=== PATIENT | female | born 1950 | race Hispanic/Latino ===

== ENCOUNTER 2017-08-10 17:05 | Emergency (ER) | payer MEDICARE ==
[2017-08-10 17:05] VITALS: BMI 26.9
[2017-08-10 17:27] VITALS: RESP 18; TEMP 98
--- NOTE | 2017-08-10 17:56 | ED PDOC ---
Arrival/HPI - General Chief Complaint: Back Pain Time Seen by Provider: 08/10/17 17:30 Historian: Patient - History of Present Illness Narrative History of Present Illness (Text): 08/10/17 17:57 A 67 year old female, with past medical history of hypertension, hyperlipidemia , aortic aneurysm and renal stents, presents to the emergency department complaining of left lower back pain for one week. Patient states her pain worsens with movement. Patient also reports abdominal bloating and left lower abdominal discomfort. Patient denies any injuries, trauma, fever, chills, nausea , vomiting, urinary symptoms, chest pain, shortness of breath, lower extremity numbness, or any other complaints. PMD: Dr. Lange Time/Duration: 1 week Symptom Course: Unchanged Quality: Other Activities at Onset: Rest Context: Home Past Medical History - Provider Review Nursing Documentation Reviewed: Yes - Infectious Disease Hx of Infectious Diseases: None - Tetanus Immunization Tetanus Immunization: Unknown - Reproductive Currently : No - Cardiac Hx Cardiac Disorders: Yes Hx Hypertension: Yes Hx Pacemaker: No - Pulmonary Hx Respiratory Disorders: Yes (SMOKED CIGARETTES H/O QUIT 2013 SMOKED 2 PPD) - Neurological Hx Neurological Disorder: Yes Hx Dizziness: Yes - HEENT Hx HEENT Disorder: No - Renal Hx Renal Disorder: Yes Other/Comment: BILATERAL RENAL ARTERY STENOSIS WITH PLACEMENT OF STENT 01-16-16 - Endocrine/Metabolic Hx Endocrine Disorders: No - Hematological/Oncological Hx Blood Disorders: No - Integumentary Hx Dermatological Disorder: No - Musculoskeletal/Rheumatological Hx Musculoskeletal Disorders: Yes Hx Arthritis: Yes Hx Falls: Yes Other/Comment: TORN MENISCUS LEFT- METATARSAL SX RIGHT FOOT. - Gastrointestinal Hx Gastrointestinal Disorders: No Hx Gastroesophageal Reflux: No Other/Comment: abdominal aortic aneurysm - Genitourinary/Gynecological Hx Genitourinary Disorders: No - Psychiatric Hx Emotional Abuse: No Hx Physical Abuse: No Hx Substance Use: No - Past Surgical History Past Surgical History: No Previous - Surgical History Other/Comment: 01-16-16 BILATERAL RENAL ARTERY STENOSIS WITH STNET PLACEMENT- - Anesthesia Hx Anesthesia Reactions: No Hx Malignant Hyperthermia: No - Suicidal Assessment Feels Threatened In Home Enviroment: No Family/Social History - Physician Review Nursing Documentation Reviewed: Yes Family/Social History: No Known Family HX Smoking Status: Former Smoker Hx Alcohol Use: No Hx Substance Use: No Hx Substance Use Treatment: No Allergies/Home Meds Allergies/Adverse Reactions: Allergies No Known Allergies Allergy (Verified 08/10/17 17:27) Home Medications: Home Meds Medication Instructions Recorded Confirmed Atorvastatin [Lipitor] 40 mg PO QAM 01/14/16 08/10/17 Aspirin [Adult Low Dose Aspirin EC] 81 mg PO DAILY 08/10/17 08/10/17 Valsartan [Diovan] 160 mg PO DAILY 08/10/17 08/10/17 Review of Systems - Physician Review All systems were reviewed & negative as marked: Yes - Review of Systems Constitutional: absent: Fevers, Night Sweats Respiratory: absent: SOB Cardiovascular: absent: Chest Pain Gastrointestinal: Abdominal Pain (left lower). absent: Nausea, Vomiting Genitourinary Female: absent: Dysuria, Frequency, Hematuria Musculoskeletal: Back Pain (left lower) Neurological: absent: Other (LE numbness) Physical Exam Vital Signs Reviewed: Yes Vital Signs Temp Pulse Resp BP Pulse Ox 08/10/17 20:27 83 18 140/80 97 08/10/17 18:07 81 18 158/96 H 95 08/10/17 17:26 98.0 F 88 18 163/103 H 93 L Appearance: Positive for: Well-Appearing, Non-Toxic, Comfortable Pain Distress: None Mental Status: Positive for: Alert and Oriented X 3 - Systems Exam Head: Present: Atraumatic, Normocephalic Pupils: Present: PERRL Extroacular Muscles: Present: EOMI Conjunctiva: Present: Normal Mouth: Present: Moist Mucous Membranes Neck: Present: Normal Range of Motion Respiratory/Chest: Present: Clear to Auscultation, Good Air Exchange. No: Respiratory Distress, Accessory Muscle Use Cardiovascular: Present: Regular Rate and Rhythm, Normal S1, S2. No: Murmurs Abdomen: Present: Normal Bowel Sounds. No: Tenderness, Distention, Peritoneal Signs Back: No: Midline Tenderness, Paraspinal Tenderness Upper Extremity: Present: NORMAL PULSES. No: Cyanosis, Edema Lower Extremity: Present: NORMAL PULSES (DP normal), Normal ROM, Neurovascularly Intact, Other (Strength sensation intact, LE reflexes symmetrical). No: Edema, CALF TENDERNESS, Tenderness, Swelling, Erythema, Temperature Abnormalties Neurological: Present: GCS=15, Motor Func Grossly Intact, Normal Sensory Function, Norm Deep Tendon Reflexes, Other (negative babinski and kernig sign) Skin: Present: Warm, Dry. No: Rashes Psychiatric: Present: Alert, Oriented x 3 Medical Decision Making ED Course and Treatment: 08/10/17 17:57 Patient denies any pain medication at this time. 08/10/17 18:15 EKG shows NSR at 77 BPM with normal intervals, normal axis, no acute ischemia. Interpreted by me. 08/10/17 22:[address] Lange who can f/u w pt tomorrow. Disc results and plan w the pt who agrees. Addendum created by Guillermo Cotton MD on 08/10/2017 10:31 PM Eastern Time ([place] & [place]) Findings are discussed with Darien Bianchi , 08/10/2017 10:31 PM EST. The findings were acknowledged and understood. Initial Report created on 08/10/2017 10:10 PM Eastern Time ([place] & [place]) CT Abdomen and Pelvis With Intravenous Contrast IMPRESSION: 1. There is aneurysmal dilatation of the distal descending thoracic aorta measuring 3.7 cm in diameter. There is aneurysmal dilatation of the abdominal aorta measuring 4.5 cm in diameter, without progression. A new aortobiiliac stent is visualized. 2. A few borderline enlarged retroperitoneal lymph nodes are visualized, stable compared to the prior study. The previously visualized borderline enlarged lower paraesophageal lymph node is stable in size. These lymph nodes are nonspecific as to etiology. 3. Diverticulosis. 4. Hepatic cysts. Right renal cyst(s). 5. Additional CT findings described above. Dictated and Authenticated by: Guillermo Cotton MD 08/10/2017 10:10 PM Eastern Time ([place] & [place]) - Lab Interpretations Lab Results: 08/10/17 18:20 08/10/17 18:20 Lab Results 08/10/17 18:52: Urine Color Yellow, Urine Appearance Cloudy, Urine pH 6.0, Ur Specific [place] 1.025, Urine Protein Negative, Urine Glucose (UA) Negative, Urine Ketones Negative, Urine Blood Moderate H, Urine Nitrate Negative, Urine Bilirubin Negative, Urine Urobilinogen 1.0 H, Ur Leukocyte Esterase Negative, Urine RBC 2 - 5, Urine WBC 2 - 5, Ur Epithelial Cells 1 - 3 08/10/17 18:20: Sodium 140, Potassium 4.1, Chloride 107, Carbon Dioxide 24, Anion Gap 12, BUN 15, Creatinine 1.0, Est GFR ( Amer) > 60, Est GFR (Non- Af Amer) 55, Random Glucose 94, Calcium 8.9, Total Bilirubin 0.9, AST 32, ALT 25 , Alkaline Phosphatase 119, Total Protein 7.1, Albumin 4.0, Globulin 3.1, Albumin/Globulin Ratio 1.3 08/10/17 18:20: WBC 6.8 D, RBC 4.73, Hgb 14.4, Hct 42.1, MCV 89.0, MCH 30.4, MCHC 34.2, RDW 12.6, Plt Count 221, MPV 8.6, Gran % 61.5, Lymph % (Auto) 25.8, Dickens % (Auto) 9.9 H, Eos % (Auto) 1.6, Baso % (Auto) 1.2, Gran # 4.18, Lymph # 1.8, Dickens # 0.7 H, Eos # 0.1, Baso # 0.08 - RAD Interpretation Radiology Orders: 08/10/17 19:52 ABD & PELVIS IV CONTRAST ONLY [CT] Stat - Scribe Statement The provider has reviewed the documentation as recorded by the Scribe Sadie Garnica training under Radha Mckay Provider Scribe Attestation: All medical record entries made by the Scribe were at my direction and personally dictated by me. I have reviewed the chart and agree that the record accurately reflects my personal performance of the history, physical exam, medical decision making, and the department course for this patient. I have also personally directed, reviewed, and agree with the discharge instructions and disposition. Disposition/Present on Arrival - Present on Arrival Any Indicators Present on Arrival: No History of DVT/PE: No History of Uncontrolled Diabetes: No Urinary Catheter: No History of Decub. Ulcer: No History Surgical Site Infection Following: None - Disposition Have Diagnosis and Disposition been Completed?: Yes Diagnosis: Back pain Disposition: HOME/ ROUTINE Disposition Time: 22:39 Condition: STABLE Discharge Instructions (ExitCare): Back Pain (ED) Additional Instructions: Please follow up with your doctor tomorrow. Return to the Emergency Room for any worsening symptoms or for any other concerns. Referrals: [facility] Leia Armendariz, [Non-Staff] - Follow up with primary Forms: [employer] (H[place]uran)
[2017-08-10 18:34] LABS: BASO # 0.08 K/mm3 (0.0-2.0); BASO % 1.2 % (0.0-3.0); EOS # 0.1 (0.0-0.7); EOS % 1.6 % (1.5-5.0); GRAN # 4.18 (1.4-6.5); GRAN % 61.5 % (50.0-68.0); HEMATOCRIT 42.1 % (36.0-48.0); LYMPH # 1.8 (1.2-3.4); LYMPH % 25.8 % (22.0-35.0); MEAN CORPUSCULAR HEMOGLOBIN 30.4 pg (25.0-35.0); MEAN CORPUSCULAR HGB CONC 34.2 g/dl (31.0-37.0); MEAN PLATELET VOLUME 8.6 fl (7.0-11.0); MONO # 0.7 (0.1-0.6); MONO % 9.9 % (1.0-6.0); RED CELL DISTRIBUTION WIDTH 12.6 % (11.5-14.5); WHITE BLOOD COUNT 6.8 10^3/ul (4.5-11.0)
[2017-08-10 18:40] LABS: ALB/GLOB RATIO 1.3 (1.1-1.8); ALKALINE PHOSPHATASE 119 U/L (38-126); ALT/SGPT 25 U/L (7-56); AST/SGOT 32 U/L (14-36); BILIRUBIN,TOTAL 0.9 mg/dL (0.2-1.3); BLOOD UREA NITROGEN 15 mg/dL (7-21); CALCIUM 8.9 mg/dL (8.4-10.5); CARBON DIOXIDE 24 mmol/L (21-33); CHLORIDE 107 mmol/L (98-107); GFR AFRICAN-AMERICAN > 60; GLUCOSE,RANDOM 94 mg/dL (70-110); POTASSIUM 4.1 mmol/L (3.6-5.0); SODIUM 140 mmol/L (132-148); TOTAL PROTEIN 7.1 g/dL (5.8-8.3)
[2017-08-10 19:19] LABS: URINE BILIRUBIN NEGATIVE (NEGATIVE); URINE BLOOD MODERATE (NEGATIVE); URINE GLUCOSE (UA) NEGATIVE (NEGATIVE); URINE KETONE NEGATIVE (NEGATIVE); URINE LEUKOCYTE ESTERASE NEGATIVE Leu/uL (NEGATIVE); URINE PROTEIN NEGATIVE mg/dL (<30 mg/dL)
[2017-08-10 19:22] LABS: URINE APPEARANCE CLOUDY (CLEAR); URINE COLOR YELLOW (YELLOW)
[2017-08-10 20:28] VITALS: BP 140/80; PULSE 83; O2SAT 97
[2017-08-10] MEDS ORDERED: Iohexol 350 MG/100 ML VIAL ONE (20:31)
--- NOTE | 2017-08-10 22:11 | CT ---
EXAM: CT Abdomen and Pelvis With Intravenous Contrast EXAM DATE/TIME: 08/10/2017 7:52 PM CLINICAL HISTORY: The patient age is 67 years old and is female; Pain; Abdominal pain; Acute Facility exam id and description: Ct abdpelciv abd pelvis iv contrast only TECHNIQUE: Axial computed tomography images of the abdomen and pelvis with intravenous contrast. All CT scans at this facility use one or more dose reduction techniques, viz.: automated exposure control; ma/kV adjustment per patient size (including targeted exams where dose is matched to indication; i.e. head); or iterative reconstruction technique. Coronal and sagittal reformatted images were created and reviewed. CONTRAST: 100 mL of OMNI 350 administered intravenously. COMPARISON: CT - ABD PELVIS IV CONTRAST ONLY 2015-12-09 08:33 FINDINGS: Lower thorax: Mild atelectatic change is visualized at the left lung base. There is coronary artery calcification. There is a small hiatal hernia. ABDOMEN: Liver: Within the medial segment of the left hepatic lobe, there is a hypodense well-circumscribed lesion measuring 1.6 x 1.3 cm. This is consistent with the previously described cyst. Gallbladder and bile ducts: No calcified stones. No ductal dilation. Pancreas: Normal contour, without acute peripancreatic stranding. Spleen: No splenomegaly. Adrenals: No mass. Kidneys and ureters: There is a stable hypodense probable right renal cyst measuring 3.1 x 2.6 cm. This is contiguous with the renal pelvis versus a parapelvic cyst. Bilateral renal artery stents are identified, new compared to the prior study. Stomach and bowel: Colonic diverticula are identified, without acute inflammatory stranding of the adjacent mesentery. Appendix: No findings to suggest acute appendicitis. PELVIS: Bladder: No mass. Reproductive: There is mild prominence of the left ovarian vein, with increased vascularity within the left side of the pelvis. This is stable. ABDOMEN and PELVIS: Intraperitoneal space: No free air. Bones/joints: Hypertrophic degenerative changes are noted within the spine. Vasculature: Atherosclerotic changes. There is aneurysmal dilatation of the distal descending thoracic aorta measuring 3.7 cm in diameter. There is aneurysmal dilatation of the abdominal aorta measuring 4.5 cm in diameter, without progression. A new aortobiiliac stent is visualized. Lymph nodes: A few borderline enlarged retroperitoneal lymph nodes are visualized, stable compared to the prior study. These lymph nodes are nonspecific as to etiology. The previously visualized borderline enlarged lower paraesophageal lymph node is stable in size. IMPRESSION: 1. There is aneurysmal dilatation of the distal descending thoracic aorta measuring 3.7 cm in diameter. There is aneurysmal dilatation of the abdominal aorta measuring 4.5 cm in diameter, without progression. A new aortobiiliac stent is visualized. 2. A few borderline enlarged retroperitoneal lymph nodes are visualized, stable compared to the prior study. The previously visualized borderline enlarged lower paraesophageal lymph node is stable in size. These lymph nodes are nonspecific as to etiology. 3. Diverticulosis. 4. Hepatic cysts. Right renal cyst(s). 5. Additional CT findings described above.
--- NOTE | 2017-08-12 00:16 | CARD ---
APPROVED REPORT EKG Measurement Heart [id number] <Conclusion> Normal sinus rhythm Normal ECG
== END 2017-08-10 22:50 | disposition home or self-care (01) ==
LOC: ED 17:05
DX: M54.5 Low back pain (principal); E78.5 Hyperlipidemia, unspecified; I10 Essential (primary) hypertension; Z87.891 Personal history of nicotine dependence
CPT/HCPCS: 74177; 80053; 81001; 85025; 99284; Q9967